=== PATIENT | female | born 1995 | race Caucasian/White ===

== ENCOUNTER → 2017-04-29 | Outpatient (CLI) | payer OTHER ==
[~2017-04-29] MED LIST: CIPRO500 MG PO; LEVAQUIN750 MG PO; PROVENTIL HFA 61 INH INH; TYLENOL 325MG325 MG PO
[2017-04-29 16:42] LABS: HEMOGLOBIN 15.2 gm/dl (12.3-15.3); RED BLOOD COUNT 4.84 M/UL (4.00-5.10); WHITE BLOOD COUNT 11.9 K/UL (4.5-11.0)
[2017-04-29 17:07] LABS: BUN/CREATININE RATIO 13 (0-10)
== END ==
LOC: RAD 16:19
PROVIDERS: Emergency Medicine
DX: J20.8 Acute bronchitis due to other specified organisms (principal); M79.1 Myalgia; R50.81 Fever presenting with conditions classified elsewhere; J18.9 Pneumonia, unspecified organism
CPT/HCPCS: 36415; 71020; 80053; 85027

== ENCOUNTER 2017-04-30 19:42 | Inpatient (IN) | payer OTHER ==
[~2017-04-30] VITALS: Ht 167.6 cm; Wt 98.0 kg
[~2017-04-30 19:42] MED LIST changes: -LEVAQUIN750 MG PO; -PROVENTIL HFA 61 INH INH; -TYLENOL 325MG325 MG PO
[2017-04-30 20:56] LABS: HEMOGLOBIN 15.7 gm/dl (12.3-15.3); RED BLOOD COUNT 4.99 M/UL (4.00-5.10)
[2017-04-30 20:58] LABS: WHITE BLOOD COUNT 19.8 K/UL (4.5-11.0)
[2017-04-30 21:15] LABS: BUN/CREATININE RATIO 14 (0-10)
[2017-05-02 04:54] LABS: HEMOGLOBIN 12.5 gm/dl (12.3-15.3); RED BLOOD COUNT 4.08 M/UL (4.00-5.10); WHITE BLOOD COUNT 13.4 K/UL (4.5-11.0)
[2017-05-02 05:23] LABS: BUN/CREATININE RATIO 15 (0-10)
[2017-05-03 03:49] LABS: HEMOGLOBIN 12.5 gm/dl (12.3-15.3); RED BLOOD COUNT 4.09 M/UL (4.00-5.10)
[2017-05-03 03:56] LABS: WHITE BLOOD COUNT 9.6 K/UL (4.5-11.0)
[2017-05-04] MEDS ORDERED: TYLENOL 325MG325 MG PO (10:26)
[2017-05-04] MEDS ORDERED: LEVAQUIN750 MG PO (10:32)
[2017-05-04] MEDS ORDERED: PROVENTIL HFA 61 INH INH (10:34)
== END 2017-05-04 08:18 | disposition home or self-care (01) | DRG 195 ==
LOC: ER1 19:42 → MED SURG 4 05-01 01:25 → ZEROF 05-01 01:25 → MED SURG 4 05-01 03:05
PROVIDERS: Emergency Medicine; Internal Medicine; ADMIT Emergency Medicine
DX: J18.9 Pneumonia, unspecified organism (principal); F17.200 Nicotine dependence, unspecified, uncomplicated; Z16.11 Resistance to penicillins; J98.01 Acute bronchospasm
CPT/HCPCS: 36415; 80048; 80053; 81001; 83605; 83690; 84703; 85025; 85027; 87040; 94640; 94664; 94667; 94668; 96361; 96365; 96375; 99285; J0456; J0696; J1885; J1956; J2405; J2550; J2930; J7030; J7050; Q9962